=== PATIENT | male | born 1995 | race Caucasian/White ===

== ENCOUNTER 2020-05-16 13:38 | Emergency (ER) | payer MEDICAID ==
[~2020-05-16] VITALS: Ht 170.2 cm; Wt 86.4 kg
[2020-05-16] MEDS ORDERED: LIDOCAINE 1% 10 ML VIAL INJ ONE (16:00)
[2020-05-16] MEDS ORDERED: AZITHROMYCIN 500 MG TABLET PO ONE (16:00)
[2020-05-16] MEDS ORDERED: CefTRIAXone SODIUM 1 GM/VIAL IM ONE (16:00)
[2020-05-16 17:28] VITALS: BP 138/85
== END 2020-05-16 17:37 | disposition home or self-care (01) ==
LOC: EMS 13:40
DX: N34.2 Other urethritis (principal)
CPT/HCPCS: 96372; 99283; J0696; J3490

== ENCOUNTER 2020-07-11 11:15 | Emergency (ER) | payer MEDICAID ==
[~2020-07-11] VITALS: Ht 172.7 cm; Wt 86.4 kg
[2020-07-11] MEDS ORDERED: DiphenhydrAMINE HCL 50 MG/ML VIAL IVP ONE (12:00)
[2020-07-11] MEDS ORDERED: MethylPREDNISolone SOD SUCC 125 MG/2 ML VIAL IVP ONE (12:00)
[2020-07-11] MEDS ORDERED: FAMOTIDINE 10 MG/ML 2 ML VIAL IVP ONE (12:00)
[2020-07-11 14:30] VITALS: BP 124/64
== END 2020-07-11 14:54 | disposition home or self-care (01) ==
LOC: EMS 11:18
DX: L50.0 Allergic urticaria (principal)
CPT/HCPCS: 96374; 96375; 99284; J1200; J2930; J3490